=== PATIENT | female | born 1975 | race Caucasian/White ===

== ENCOUNTER → 2019-05-16 16:11 | Outpatient (CLI) | payer OTHER, SELFPAY ==
--- NOTE | 2019-05-16 16:14 | DI.RAD.S_ITS ---
PROCEDURE: XR THORACIC SPINE 3V INDICATIONS: back pain TECHNIQUE: 3 views of the thoracic spine were acquired. COMPARISON: None. FINDINGS: Bones: There is severe dextroscoliosis of the thoracic spine which limits the sensitivity. On the frontal view, no definite compression fracture seen however the lateral view is nondiagnostic Soft tissues: No paravertebral stripe thickening. IMPRESSION: Severe dextroscoliosis, which limits diagnostic study sensitivity. No definite fracture seen on the frontal view although if there is is persistent high clinical concern, CT could be performed. Dictated by: Aramis Mcarthur M.D. on 05/16/2019 at 16:49 Approved by: Aramis Mcarthur M.D. on 05/16/2019 at 16:52
== END ==
PROVIDERS: Family Provider Internal Medicine; PCP Internal Medicine; Visit Provider Internal Medicine
DX: M54.9 Dorsalgia, unspecified (principal); M41.84 Other forms of scoliosis, thoracic region
CPT/HCPCS: 72072

== ENCOUNTER → 2019-06-24 20:46 | Outpatient (CLI) | payer OTHER, SELFPAY | PROVIDERS: Family Provider Internal Medicine; PCP Internal Medicine; Visit Provider Physician Assistant | DX: R10.9 Unspecified abdominal pain (principal) | CPT/HCPCS: 87086; 87186 ==

== ENCOUNTER → 2019-07-11 11:35 | Outpatient (CLI) | payer OTHER, SELFPAY ==
--- NOTE | 2019-07-11 12:13 | DI.CT.S_ITS ---
PROCEDURE: CT KIDNEY URETER BLADDER (KUB) INDICATIONS: left flank pain TECHNIQUE: Noncontrast 5 mm thick sections acquired from the diaphragms to the symphysis. 5 mm thick coronal and sagittal reformats were then performed. For radiation dose reduction, the following was used: automated exposure control, adjustment of mA and/or kV according to patient size. COMPARISON: None. FINDINGS: Image quality: Excellent. Lung bases: Lung bases are clear. Heart size is normal. Urinary system: Both kidneys are normal in size. No kidney stone is found on the left but there is a 2 x 3 mm calculus within a nondistended portion of the renal pelvis on the right.. No hydronephrosis or perinephric fat stranding. Both ureters appear non-dilated throughout their expected courses. Bladder wall thickness is normal; no calcified bladder stones. Other solid organs: Liver is normal in size. Gallbladder appears normal. Pancreas is normal in contours. Spleen is normal in size. No adrenal nodules. Peritoneum and bowel: Unenhanced bowel loops demonstrate normal wall thickness and caliber. No free fluid or air. Nodes and vessels: No retroperitoneal or mesenteric adenopathy by size criteria. Aorta and inferior vena cava are normal in caliber. Abdominal wall: No ventral hernias. Pelvis: No free pelvic fluid. No inguinal hernias or adenopathy. Bones: No suspicious bony lesions. There is convex rightward thoracic scoliosis and moderately severe convex leftward scoliosis centered at the mid lumbosacral spine. No vertebral body compression fractures. IMPRESSION: A right sided nonobstructive 2 x 3 mm renal pelvis collecting system calculus is seen, potentially a source of episodic pain and hematuria but no left-sided urinary tract stone or ureteral dilatation is present and a source of the reported persistent left flank pain is not found. Dictated by: Percy Lynn M.D. on 07/11/2019 at 17:26 Approved by: Percy Lynn M.D. on 07/11/2019 at 17:28
== END ==
PROVIDERS: Family Provider Internal Medicine; PCP Internal Medicine; Visit Provider Internal Medicine
DX: N20.0 Calculus of kidney (principal); R31.9 Hematuria, unspecified; R10.9 Unspecified abdominal pain
CPT/HCPCS: 74176

== ENCOUNTER → 2019-12-02 10:05 | Outpatient (CLI) | payer OTHER, SELFPAY ==
--- NOTE | 2019-12-02 10:07 | DI.NM.S_ITS ---
PROCEDURE: NM BONE SCAN WHOLE BODY RADIOPHARMACEUTICAL: 20.7 mCi Tc-99m MDP IV. INDICATIONS: Left flank pain with scoliosis TECHNIQUE: Delayed whole-body scintigrams were obtained approximately 3-4 hours after intravenous injection of radiotracer. Anterior and posterior views were acquired from vertex to feet. COMPARISON: [facility], MR, MR THORACIC SPINE WITHOUT CONTRAST, 09/30/2019, 13:57. [facility], CT, CT KIDNEY URETER BLADDER (KUB), 07/11/2019, 11:40. FINDINGS: There is severe levoscoliosis. Foci of ncreased uptake in lower cervical spine, thoracic spine and lumbar spine are indistinguishable from degenerative disc and facet disease, most pronounced at C6-C7 on the right, T12-L1 on the left, L3 at L4 L5-L5 on the right. No lesions are identified in skull, sternum, clavicles, scapulae, ribs, bony pelvis, and visualized shafts of the long bones. There increased periarticular activity involving shoulders, sternoclavicular joints, hips and feet, consistent with degenerative/arthritic changes. IMPRESSION: Severe levoscoliosis and degenerative changes as described. Dictated by: Cy Hand M.D. on 12/02/2019 at 14:50 Approved by: Cy Hand M.D. on 12/06/2019 at 8:32
== END ==
PROVIDERS: PCP Internal Medicine; Visit Provider Physical Medicine & Rehabilitation
DX: M47.814 Spondylosis without myelopathy or radiculopathy, thoracic region (principal); M41.20 Other idiopathic scoliosis, site unspecified; R10.9 Unspecified abdominal pain
CPT/HCPCS: 78306; A9503

== ENCOUNTER 2020-01-10 12:39 | Outpatient (CLI) | payer OTHER, SELFPAY ==
[2020-01-10] VITALS (9 sets, daily range): BP systolic 136–154; BP diastolic 92–99; PULSE 89–110; RESP 16–17; TEMP 36.4; O2SAT 96–100
--- NOTE | 2020-01-10 12:41 | DI.RAD.S_ITS ---
PROCEDURE: PAIN L/SI FACET INJ/BLK 1STL INDICATIONS: SCOLIOSIS FINDINGS: Fluoroscopic spot filming was performed to verify placement of spinal needles at the T11-T12, T12-L1 level(s), as labeled on the films. Appropriate location(s) of the needle tip(s) was confirmed by injection of iodinated contrast. Dictated by: Aramis Mcarthur M.D. on 01/11/2020 at 11:58 Approved by: Aramis Mcarthur M.D. on 01/11/2020 at 11:58
[2020-01-10] MEDS: MIDAZOLAM 5 MG/5 ML VIAL IV (14:03)
[2020-01-10] MEDS: fentaNYL 100 MCG/2 ML INJ 50 MCG IV (14:03)
[2020-01-10] MEDS: DEXAMETHASONE 10 MG/ML VIAL 20 MG INJ (14:14)
[2020-01-10] MEDS: BUPIVACAINE 0.5% (PF) VIAL 2 ML INJ (14:14)
[2020-01-10] MEDS: IOPAMIDOL 15 ML VIAL 3 ML INJ (14:15)
--- NOTE | 2020-01-10 14:16 | PC.NURSE ---
ASSISTING PT OFF TABLE AND TRANSPORTING TO POST PROC AREA IN STABLE CONDITION. PASSING RN CARE OF PT OFF TO JANET Good RN.
--- NOTE | 2020-01-10 14:23 | P.PCN_ITS ---
Procedures Date/Time Date of procedure: 01/10/20 Time of procedure: 14:23 General Procedure description: PREOP DIAGNOSIS 1. FACET ARTHROPATHY, 2. AXIAL LBP, 3. MULTILEVEL DDD, POST OP DIAGNOSIS 1. FACET ARTHROPATHY, 2. AXIAL LBP, 3. MULTILEVEL DDD, PROCEDURES 1. FLUORSCOPICALLY GUIDED CONTRAST CONTROLLED FACET JOINT INJECTIONS LEFT T12/L1,L1/2 SURGEON: Govind Goodrich, INDICATION Yuliya is referred by . is referred for treatment of Axial LBP FINDINGS Multilevel Facet Arthropathy with Clinically significant axial LBP DESCRIPTION OF PROCEDURE Fluoroscopically guided, contrast-controlled left T12/L1, L1/2 facet joint injections. Following review of allergy and review of potential side effects and complications, including, but not necessarily limited to, infection, allergic reaction, local tissue breakdown, stroke, temporary or permanent nerve injury, paralysis, and possible , the patient indicated that the patient understood and agreed to proceed. An informed consent document was signed by the patient, witnessed by a nurse, and placed in the patient's chart. Additionally, other treatment options including medications, modalities, and physical therapy were reviewed with the patient. After review of previous anaesthesic history and IV conscious sedation the patient was deemed safe to proceed with todays procedure with IV conscious sedation as ASA class II designation. Safety time-out was performed to confirm patient ID, procedure to be performed and site of procedure. IV sedation was accomplished with a combination of 5mg of Versed and 50mcg of Fentanyl administered by the RN after DO order, titrated to patient comfort during the course of the procedure while the patient remained responsive to all verbal commands In the prone position, following sterile prep and drape of the lumbar region, the posterior aspect of the left T12/L1, L1/2 facet joints were identified fluoroscopically. The skin was anesthetized via a 25-gauge 1.5-inch needle with 1% lidocaine solution into the corresponding facet joints. At this point, a 25- gauge 3.5-inch spinal needle was atraumatically introduced and advanced under fluoroscopic guidance into the corresponding facet joints. Following negative aspiration, injections of approximately 0.2-cc of Isovue 200 confirmed interarticular placement without vascular uptake. Radiological data, including multiple fluoroscopic views of the lumbosacral spine, reveal a spinal needle at the left T12/L1, L1/2 facet joints. Subsequent views show flow of contrast material both superiorly and inferiorly within the joint space without vascular or intrathecal uptake. At this point, a total of 0.5cc including a mixture of 0.25cc Marcaine and 0.25cc dexamthasone was injected without complication into each of the corresponding facet joints. The patient tolerated the procedure well without signs or symptoms of complications prior to transfer to the recovery area continued monitoring without incident. The patient was then transferred to the recovery area where they were observed for an appropriate period of time after the injection. The patient reported a VAS score of 7 prior to the procedure and a post-procedure VAS of 0. Total Fluoroscopy Time: 20 seconds Total Conscious Sedation Time: 24 min POST OP INSTRUCTIONS The patient was provided a Pain Log to continue to record their response to the target-specific procedure prior to follow-up visit with their referring physician. Additionally, specific post-injection care instructions and a contact number to our office were provided if concerns arise regarding possible compl ications associated with the procedure are suspected. Govind Goodrich, Complications: none
--- NOTE | 2020-01-10 14:30 | PC.NURSE ---
1425: Received patient post procedure, calm, and pleasant. VSS, Lori WNL.
== END 2020-01-10 14:41 | disposition home or self-care (01) ==
LOC: RAD 12:41
PROVIDERS: PCP Internal Medicine; Referring Provider Physical Medicine & Rehabilitation; Visit Provider Physical Medicine & Rehabilitation
DX: M47.814 Spondylosis without myelopathy or radiculopathy, thoracic region (principal); M47.816 Spondylosis without myelopathy or radiculopathy, lumbar region; M54.5 Low back pain; M51.34 Other intervertebral disc degeneration, thoracic region; M51.36 Other intervertebral disc degeneration, lumbar region
CPT/HCPCS: 64490; 64491; 64493; 64494; 99152; J1100; J2250; J3010

== ENCOUNTER 2020-02-14 10:43 | Outpatient (CLI) | payer OTHER, SELFPAY ==
[2020-02-14] VITALS (7 sets, daily range): BP systolic 140–168; BP diastolic 73–102; PULSE 90–118; RESP 16–18; O2SAT 84–100
--- NOTE | 2020-02-14 10:44 | DI.RAD.S_ITS ---
PROCEDURE: PAIN C/T INTERLAMINAR INJECT INDICATIONS: SPINAL STENOSIS FINDINGS: Fluoroscopic spot filming was performed to verify placement of spinal needles at the T12-L1 interlaminar level(s), as labeled on the films. Appropriate location(s) of the needle tip(s) was confirmed by injection of iodinated contrast. IMPRESSION: Successful needle tip localization at the interlaminar space dorsally at T12-L1, for epidural steroid injection. Dictated by: Percy Lynn M.D. on 02/14/2020 at 12:48 Approved by: Percy Lynn M.D. on 02/14/2020 at 12:49
[2020-02-14] MEDS: fentaNYL 100 MCG/2 ML INJ 50 MCG IV (11:10)
[2020-02-14] MEDS: MIDAZOLAM 5 MG/5 ML VIAL IV (11:10)
[2020-02-14] MEDS: BUPIVACAINE 0.25% (PF) VIAL 2 ML INJ (11:14)
[2020-02-14] MEDS: BETAMETHASONE 30 MG/5 ML MDV 6 MG INJ (11:14)
[2020-02-14] MEDS: IOPAMIDOL 15 ML VIAL 3 ML INJ (11:14)
[2020-02-14] MEDS: DEXAMETHASONE 10 MG/ML VIAL 20 MG INJ (11:15)
--- NOTE | 2020-02-14 11:18 | PC.NURSE ---
ASSISTING PT OFF TABLE AND TRANSPORTING TO POST PROC AREA IN STABLE CONDITION. PASSING RN CARE OF PT OFF TO ROMA OCHOA.
--- NOTE | 2020-02-14 11:22 | P.PCN_ITS ---
Procedures Date/Time Date of procedure: 02/14/20 Time of procedure: 11:22 General Procedure description: Preop diagnosis: Thoracic stenosis with HNP Postprocedure diagnosis: Thoracic stenosis with HNP Physician: Govind Goodrich D.O. Indications: Yuliya is referred by Dr. Pickett for treatment of thoracic DDD/DJD with radiculopathy Description of procedure: Fluoroscopic guided, contrast controlled T12/L1 translaminar epidural steroid in jection with conscious sedation. Following review of allergy review potential side effects and complications, including, but not necessarily limited to, infection, allergic reaction, local tissue breakdown, temporary as well as permanent nerve injury, stroke, paralysis and possible , the patient indicated that they understood and agreed to proceed. An informed consent document was signed by the patient, witnessed by the nurse, and placed in the patient's chart. Additionally other treatment options including modalities, medications and physical therapy were reviewed with the patient. After review of previous anaesthesic history and IV conscious sedation the patient was deemed safe to proceed with todays procedure with IV conscious sedation as ASA class II designation. Safety time-out was performed to confirm patient ID, procedure to be performed and site of procedure. IV sedation was accomplished with a combination of 4mg of Versed and 50mcg of Fentanyl administered by the RN after DO order, titrated to patient comfort during the course of the procedure while the patient remained responsive to all verbal commands In the prone position, following sterile prep and drape of the thoracic region the T12/L1 translaminar space was identified fluoroscopically. The skin was anesthetized via 25 gauge 20 mm sheath with 1% lidocaine solution. At this point a 20 gauge epidural needle was atraumatically introduced and advanced under fluoroscopic guidance into the region of the T12/L1 translaminar space depth was confirmed on lateral view. Radiographic data, including multiple fluoroscopic views of the thoracic spine, reveals spinal needle at the T12/[id number] space. Lateral views then showed the placement of the needle in the epidural space. Subsequent view show contrast material flowing superiorly and inferiorly in the epidural space. No vascular or intrathecal uptake is observed. At this point using loss of resistance technique with saline and the epidural s pace was entered. This was confirmed followed negative aspiration and injection of approximately 1.5 cc of Isovue 200 showed excellent epidural flow without vascular or intrathecal uptake. At this point, 1 cc of 1% lidocaine solution was admitted as a test dose and the patient was observed for an appropriate period of time without signs or symptoms of complications, including abdominal pain, shortness of breath, bilateral upper and lower extremity weakness, nausea and vomiting, prior to steroid injection. Subsequently, 2cc or 20mg of dexamethasone was then injected without incident. The patient tolerated the procedure well without signs of complications and subsequently was transferred to the recovery room for further monitoring. The patient was then transferred to the recovery area with their observed for an appropriate time after the injection. Patient reported a VAS score of 9 prior to the procedure and postprocedure VAS of 2. Total fluoroscopy time: 7 sec Total conscious sedation time: 24 min Govind Goodrich D.O. Complications: none
--- NOTE | 2020-02-14 11:52 | PC.NURSE ---
pt returned from [facility] via [facility]. Able to transfer from to chair without issues. resumed monitoring from ROMA Rod
== END 2020-02-14 11:54 | disposition home or self-care (01) ==
LOC: RAD 10:43
PROVIDERS: PCP Internal Medicine; Referring Provider Internal Medicine; Visit Provider Physical Medicine & Rehabilitation
DX: M48.04 Spinal stenosis, thoracic region (principal); M51.14 Intervertebral disc disorders with radiculopathy, thoracic region; M47.24 Other spondylosis with radiculopathy, thoracic region
CPT/HCPCS: 62321; 99152; J0702; J1100; J2250; J3010

== ENCOUNTER → 2020-05-29 17:16 | Outpatient (CLI) | payer OTHER, SELFPAY ==
[2020-05-29 20:13] LABS: Free T3, Triiodothyronine Free 2.71 pg/mL (2.77-5.27); Free T4, Direct Thyroxine 2.06 ng/dL (0.78-2.19)
[2020-05-29 20:27] LABS: Thyroid Stimulating Hormone 0.098 uIU/mL (0.47-4.68)
[2020-05-29 20:48] LABS: Alanine Aminotransferase 21 IU/L (<35); Albumin 4.4 g/dL (3.5-5.0); Albumin Globulin Ratio 1.5 (1.0-2.8); Alkaline Phosphatase 57 U/L (38-126); Aspartate Aminotransferase 31 IU/L (14-36); BUN Creatinine Ratio 13.9 (6-22); Bilirubin Total 0.4 mg/dL (0.2-1.3); Blood Urea Nitrogen 10 mg/dL (7-17); Calcium 10.2 mg/dL (8.4-10.2); Carbon Dioxide 24 mmol/L (22-32); Chloride 104 mmol/L (98-107); Estimated Glomerular Filt Rate > 60.0 mL/min (>60); Globulin 2.9 g/dL (1.7-4.1); Glucose 87 mg/dL (70-100); HEMOLYSIS < 15 (0-50); Potassium 4.4 mmol/L (3.4-5.1); Sodium 136 mmol/L (137-145); Total Protein 7.3 g/dL (6.3-8.2)
== END ==
PROVIDERS: PCP Internal Medicine; Referring Provider Internal Medicine; Visit Provider Internal Medicine
DX: E03.9 Hypothyroidism, unspecified (principal); F41.9 Anxiety disorder, unspecified; I10 Essential (primary) hypertension
CPT/HCPCS: 36415; 80053; 84439; 84443; 84481

== ENCOUNTER → 2021-02-13 14:19 | Outpatient (CLI) | payer OTHER, SELFPAY ==
--- NOTE | 2021-02-13 14:21 | DI.RAD.S_ITS ---
PROCEDURE: XR LUMBAR SPINE MIN 4V INDICATIONS: back pain TECHNIQUE: 5 views of the lumbar spine acquired, including flexion and extension views. COMPARISON: None. FINDINGS: Bones: 5 nonrib-bearing vertebrae are present. Moderate to severe levoscoliosis centered at the L3-L5 level. Grade 1 retrolisthesis L4-L5. Multilevel disc degeneration, most notably and severe at the L4-L5 level. Moderate L4-L5 and L5-S1 facet joint arthropathy. No vertebral body compression fractures. No suspicious bony lesions. Soft tissues: Overlying bowel gas pattern is normal. No suspicious soft tissue calcifications. IMPRESSION: Multilevel spondylosis, most notably with severe disc degeneration at the L4-L5 level. Dictated by: Nick Woods A Interpreted: Jessica Harman MD on 02/13/2021 at 15:22 Approved by: Jessica Harman MD, PhD on 02/13/2021 at 15:38
--- NOTE | 2021-02-13 14:21 | DI.RAD.S_ITS ---
PROCEDURE: XR THORACIC SPINE 3V INDICATIONS: rib pain TECHNIQUE: 3 views of the thoracic spine were acquired. COMPARISON: [facility], , XR THORACIC SPINE 3V, 05/16/2019, 16:15. FINDINGS: Bones: No definite fracture or although limited diagnostic sensitivity given severe scoliosis. Multilevel degenerative endplate sclerosis and spurring. Diffuse facet arthropathy. Soft tissues: No paravertebral stripe thickening. IMPRESSION: Discogenic changes. No definite fracture although suboptimal evaluation due to severe scoliosis. Dictated by: Aramis Mcarthur M.D. on 02/13/2021 at 15:29 Approved by: Aramis Mcarthur M.D. on 02/13/2021 at 15:33
== END ==
PROVIDERS: PCP Internal Medicine; Referring Provider Physical Medicine & Rehabilitation; Visit Provider Physical Medicine & Rehabilitation
DX: M48.061 Spinal stenosis, lumbar region without neurogenic claudication (principal); M47.814 Spondylosis without myelopathy or radiculopathy, thoracic region; M54.5 Low back pain; R07.81 Pleurodynia
CPT/HCPCS: 72072; 72110

== ENCOUNTER → 2021-02-27 16:09 | Outpatient (CLI) | payer OTHER, SELFPAY ==
[2021-02-27] MEDS: COVID-19 VACC #1, MRNA(MOD) 100 MCG/0.5 ML VIAL IM (16:14)
== END ==
PROVIDERS: PCP Internal Medicine; Visit Provider Internal Medicine
DX: Z23 Encounter for immunization (principal)
CPT/HCPCS: 0011A; 91301

== ENCOUNTER → 2021-03-27 15:37 | Outpatient (CLI) | payer OTHER, SELFPAY ==
[2021-03-27] MEDS: COVID-19 VACC #2, MRNA(MOD) 100 MCG/0.5 ML VIAL IM (15:46)
== END ==
PROVIDERS: PCP Internal Medicine; Visit Provider Internal Medicine
DX: Z23 Encounter for immunization (principal)
CPT/HCPCS: 0012A; 91301

== ENCOUNTER → 2021-08-12 16:52 | Outpatient (CLI) | payer OTHER, SELFPAY ==
[2021-08-12 17:41] LABS: Alanine Aminotransferase 18 IU/L (<35); Albumin 4.4 g/dL (3.5-5.0); Albumin Globulin Ratio 1.5 (1.0-2.8); Alkaline Phosphatase 57 U/L (38-126); Aspartate Aminotransferase 30 IU/L (14-36); BUN Creatinine Ratio 14.3 (6-22); Bilirubin Total 0.4 mg/dL (0.2-1.3); Blood Urea Nitrogen 11 mg/dL (7-17); Calcium 9.6 mg/dL (8.4-10.2); Carbon Dioxide 24 mmol/L (22-32); Chloride 105 mmol/L (98-107); Estimated Glomerular Filt Rate > 60.0 mL/min (>60); Globulin 2.9 g/dL (1.7-4.1); Glucose 89 mg/dL (70-100); HEMOLYSIS < 15 (0-50); Sodium 137 mmol/L (137-145); Total Protein 7.3 g/dL (6.3-8.2)
[2021-08-12 17:59] LABS: Free T3, Triiodothyronine Free 3.58 pg/mL (2.77-5.27); Free T4, Direct Thyroxine 1.56 ng/dL (0.78-2.19)
== END ==
PROVIDERS: PCP Internal Medicine; Referring Provider Internal Medicine; Visit Provider Internal Medicine
DX: I10 Essential (primary) hypertension (principal); E03.9 Hypothyroidism, unspecified; F33.40 Major depressive disorder, recurrent, in remission, unspecified
CPT/HCPCS: 36415; 80053; 84439; 84443; 84481

== ENCOUNTER → 2022-01-15 07:45 | Outpatient (CLI) | payer OTHER, SELFPAY ==
--- NOTE | 2022-01-15 07:46 | DI.RAD.S_ITS ---
PROCEDURE: XR LUMBAR SPINE MIN 4V INDICATIONS: Acute LBP and Right Hip pain TECHNIQUE: 5 views of the lumbar spine were acquired, including bilateral oblique views. COMPARISON: [facility], , XR LUMBAR SPINE MIN 4V, 02/13/2021, 14:29. FINDINGS: Bones: 5 nonrib-bearing vertebrae are present. Marked dextroscoliosis of thoracic spine with mild compensatory levoscoliosis of lumbar spine centered at L4 level is again seen and unchanged. No vertebral body compression fractures. Degenerative endplate changes and bilateral facet arthrosis throughout lumbar spine is seen more prominent at L3-4 and L4-5 levels. Vacuum disc phenomenon is also noted at L4-5 level. No spondylolisthesis. No suspicious bony lesions. Soft tissues: Overlying bowel gas pattern is normal. No suspicious soft tissue calcifications. Oblique images: No pars defects. Suggestion of bilateral bony foraminal stenosis at L3-4 through L5-S1 levels are seen. IMPRESSION: 1. Marked S-shaped scoliosis as above unchanged from prior study. No acute compression fracture or spondylolisthesis. 2. Degenerative disc disease throughout lumbar spine more prominent at L3-4 through L5-S1 levels. 3. No gross pars defects. Suggestion of bilateral bony foraminal stenosis at L3-4 through L5-S1 levels on oblique views. Dictated by: Rogers Prieto M.D. on 01/15/2022 at 8:32 Approved by: Rogers Prieto M.D. on 01/15/2022 at 8:37
== END ==
PROVIDERS: PCP Internal Medicine; Referring Provider Physical Medicine & Rehabilitation; Visit Provider Physical Medicine & Rehabilitation
DX: M41.115 Juvenile idiopathic scoliosis, thoracolumbar region (principal); M51.36 Other intervertebral disc degeneration, lumbar region; M51.37 Other intervertebral disc degeneration, lumbosacral region
CPT/HCPCS: 72110

== ENCOUNTER → 2022-04-07 14:45 | Outpatient (CLI) | payer OTHER, SELFPAY ==
[2022-04-07 16:41] LABS: Follicle Stimulating Hormone 16.8 mIU/mL
[2022-04-07 17:02] LABS: Appearance Urine UA CLEAR; Bilirubin Urine UA NEGATIVE (NEGATIVE); Color Urine UA YELLOW; Glucose Urine UA NEGATIVE (Negative); Ketones Urine UA NEGATIVE (NEGATIVE); Leukocyte Esterase Urine UA TRACE (NEGATIVE); Nitrite Urine UA NEGATIVE (Negative); Occult Blood Urine UA NEGATIVE (Negative); Protein Urine UA NEGATIVE (Negative); Urobilinogen Urine UA 0.2 E.U./dL (0.2)
[2022-04-07 17:09] LABS: RBC Urine 0-1/HPF (0-5/HPF); WBC Urine 5-10/HPF (0-5/HPF)
[2022-04-07 17:10] LABS: Bacteria Urine Occasional (0-1); Culture Indicated Urine Specimen Cultured
== END ==
PROVIDERS: PCP Internal Medicine; Referring Provider Nurse Practitioner; Visit Provider Nurse Practitioner
DX: N92.6 Irregular menstruation, unspecified (principal); R32 Unspecified urinary incontinence
CPT/HCPCS: 36415; 81001; 83001; 87086

== ENCOUNTER → 2022-05-02 15:54 | Outpatient (CLI) | payer OTHER, SELFPAY ==
--- NOTE | 2022-05-02 15:56 | DI.MRI.S_ITS ---
PROCEDURE: MR THORACIC SPINE WO CON INDICATIONS: thoracic stenosis with scoliosis TECHNIQUE: Noncontrast sagittal T1 spine echo and T2 fast spin echo, sagittal STIR, axial T1 and T2 fast spin echo through the thoracic spine. COMPARISON: [facility], CR, XR LUMBAR SPINE MIN 4V, 01/15/2022, 7:39. [facility], [facility], MR THORACIC SPINE WITHOUT CONTRAST, 09/30/2019, 13:57. FINDINGS: Image quality: Excellent. Alignment and Curvature: There is significant dextroconvex thoracic scoliosis, which measures approximately 60?. Bone Marrow: Marrow is of normal overall signal. No acute vertebral body compression fractures. Spinal Cord: There is partial visualization of lower cervical spine syrinx. Mid thoracic spine syrinx is seen, which extends from T5 through T8. Visualized spinal cord is otherwise normal in size and signal. Paraspinous Soft Tissues: No paravertebral masses. Miscellaneous: Several levels of at least moderate neural foraminal narrowing can be seen within the mid thoracic spine on the left side. No significant central canal narrowing is seen. Reactive marrow endplate changes are seen on the left at the T11-T12 level and also on the right at the L2-L3 level, which are hypointense on T1-weighted imaging and hyperintense on T2 weighted imaging, which is most consistent with edema (Modic type I changes). IMPRESSION: Significant dextroconvex scoliosis, approximately 60?. There is new endplate edema (Modic type 1 changes) seen on the left at the T11-T12 level and on the right at the L2-L3 level. Lower cervical spine and midthoracic syrinx can again be seen, which is similar to 2019, when comparison is made to the prior images. Several levels of at least moderate midthoracic neural foraminal narrowing can be seen on the left side. No significant central canal narrowing is seen. Dictated by: Marcelino Calderon M.D. on 05/02/2022 at 15:50 Approved by: Marcelino Calderon M.D. on 05/02/2022 at 15:58
== END ==
PROVIDERS: PCP Internal Medicine; Referring Provider Physical Medicine & Rehabilitation; Visit Provider Physical Medicine & Rehabilitation
DX: M41.115 Juvenile idiopathic scoliosis, thoracolumbar region (principal); M47.814 Spondylosis without myelopathy or radiculopathy, thoracic region; M48.04 Spinal stenosis, thoracic region; G95.0 Syringomyelia and syringobulbia
CPT/HCPCS: 72146

== ENCOUNTER → 2022-09-25 14:22 | Outpatient (CLI) | payer OTHER, SELFPAY | PROVIDERS: PCP Internal Medicine; Referring Provider Internal Medicine; Visit Provider Internal Medicine | DX: R20.0 Anesthesia of skin (principal) | CPT/HCPCS: 95886; 95912 ==

== ENCOUNTER → 2023-04-13 15:12 | Outpatient (CLI) | payer OTHER, SELFPAY ==
--- NOTE | 2023-04-13 15:13 | DI.RAD.S_ITS ---
PROCEDURE: XR CHEST 2V INDICATIONS: cough TECHNIQUE: 2 views of the chest were acquired. COMPARISON: None. FINDINGS: Surgical changes and devices: None. Lungs and pleura: Lungs are clear. No pleural effusions or pneumothorax. Mediastinum: Mediastinal contours are normal. Heart size is normal. Bones and chest wall: Severe right convex scoliosis is noted. Soft tissues appear unremarkable. IMPRESSION: No acute cardiopulmonary findings. Dictated by: Tianna Duncan M.D. on 04/13/2023 at 17:40 Approved by: Tianna Duncan M.D. on 04/13/2023 at 17:40
== END ==
PROVIDERS: PCP Internal Medicine; Referring Provider Internal Medicine; Visit Provider Internal Medicine
DX: R05.9 Cough, unspecified (principal)
CPT/HCPCS: 71046

== ENCOUNTER → 2023-12-22 11:44 | Outpatient (CLI) | payer OTHER, SELFPAY ==
--- NOTE | 2023-12-22 11:46 | DI.RAD.S_ITS ---
PROCEDURE: XR PELVIS 1-2V INDICATIONS: bladder stone TECHNIQUE: 1 view(s) of the pelvis acquired. COMPARISON: [facility], CT, CT ABDOMEN PELVIS WITH CONTRAST, 12/04/2023, 21:10. FINDINGS: Bones: No fractures or dislocations. No suspicious bony lesions. Soft tissues: Visualized bowel gas pattern is normal. Again noted is an unchanged bladder stone. An IUD is present in the uterus. IMPRESSION: Bladder stone Dictated by: Abad Rose M.D. on 12/22/2023 at 19:05 Approved by: Abad Rose M.D. on 12/22/2023 at 19:07
[2023-12-22 12:46] LABS: Basophils Absolute Auto 100 /uL (0-100); Basophils Percent Auto 0.7 % (0-2); Eosinophils Absolute Auto 400 /uL (0-450); Eosinophils Percent Auto 3.2 % (2-4); Hematocrit 30.5 % (36-46); Hemoglobin 9.8 g/dL (12.0-16.0); Lymphocytes Absolute Auto 3000 /uL (1100-4500); Lymphocytes Percent Auto 26.1 % (25-40); Mean Corpuscular HGB Conc 32.1 % (30-36); Mean Corpuscular Hemoglobin 28.1 PG (26-34); Mean Corpuscular Volume 87.5 fL (80-100); Monocytes Absolute Auto 700 /uL (0-900); Monocytes Percent Auto 5.7 % (3-14); Neutrophils Absolute Auto 7500 /uL (1500-7000); Neutrophils Percent Auto 64.3 % (50-75); Red Blood Cell Count 3.49 X10^6/uL (4.0-5.2); Red Cell Distribution Width 15.4 % (11.6-14.8); White Blood Cell Count 11.6 X10^3/uL (4.5-11.0)
[2023-12-22 12:54] LABS: Platelet Count 1293 X10^3/uL (150-400)
[2023-12-22 12:55] LABS: Add Manual Diff / Slide Review SLIDE REVIEW
[2023-12-22 13:15] LABS: Platelet Estimate Increased on smear; RBC Morphology Normal Morphology
[2023-12-22 13:38] LABS: Alanine Aminotransferase 25 IU/L (<35); Albumin 3.6 g/dL (3.5-5.0); Albumin Globulin Ratio 0.9 (1.0-2.8); Alkaline Phosphatase 122 U/L (38-126); Aspartate Aminotransferase 42 IU/L (14-36); BUN Creatinine Ratio 13.7 (6-22); Bilirubin Total 0.5 mg/dL (0.2-1.3); Blood Urea Nitrogen 13 mg/dL (7-17); Calcium 9.8 mg/dL (8.4-10.2); Carbon Dioxide 23 mmol/L (22-32); Chloride 106 mmol/L (98-107); Estimated Glomerular Filt Rate > 60 mL/min (>60); Globulin 3.9 g/dL (1.7-4.1); Glucose 92 mg/dL (70-100); HEMOLYSIS < 15 (0-50); Potassium 4.6 mmol/L (3.4-5.1); Sodium 142 mmol/L (137-145); Total Protein 7.5 g/dL (6.3-8.2)
[2023-12-22 13:51] LABS: Free T4, Direct Thyroxine 1.72 ng/dL (0.78-2.19)
[2023-12-22 14:05] LABS: Thyroid Stimulating Hormone < 0.015 uIU/mL (0.47-4.68)
== END ==
PROVIDERS: PCP Internal Medicine; Referring Provider Internal Medicine; Visit Provider Internal Medicine
DX: N21.0 Calculus in bladder (principal); E03.9 Hypothyroidism, unspecified; I10 Essential (primary) hypertension
CPT/HCPCS: 36415; 72170; 80053; 84439; 84443; 85025

== ENCOUNTER → 2024-06-17 16:49 | Outpatient (CLI) | payer OTHER, SELFPAY ==
[2024-06-17 17:38] LABS: Add Manual Diff / Slide Review NO; Basophils Absolute Auto 100 /uL (0-100); Basophils Percent Auto 0.9 % (0-2); Eosinophils Absolute Auto 500 /uL (0-450); Eosinophils Percent Auto 6.9 % (2-4); Hematocrit 36.8 % (36-46); Lymphocytes Absolute Auto 2600 /uL (1100-4500); Lymphocytes Percent Auto 39.6 % (25-40); Mean Corpuscular HGB Conc 32.6 % (30-36); Mean Corpuscular Hemoglobin 29.1 PG (26-34); Mean Corpuscular Volume 89.2 fL (80-100); Monocytes Absolute Auto 600 /uL (0-900); Monocytes Percent Auto 9.1 % (3-14); Neutrophils Absolute Auto 2900 /uL (1500-7000); Neutrophils Percent Auto 43.5 % (50-75); Platelet Count 480 X10^3/uL (150-400); Red Blood Cell Count 4.13 X10^6/uL (4.0-5.2); Red Cell Distribution Width 15.2 % (11.6-14.8); White Blood Cell Count 6.6 X10^3/uL (4.5-11.0)
[2024-06-17 18:41] LABS: Alanine Aminotransferase 27 IU/L (<35); Albumin 4.2 g/dL (3.5-5.0); Albumin Globulin Ratio 1.4 (1.0-2.8); Alkaline Phosphatase 113 U/L (38-126); Aspartate Aminotransferase 43 IU/L (14-36); BUN Creatinine Ratio 16.1 (6-22); Bilirubin Total 0.4 mg/dL (0.2-1.3); Blood Urea Nitrogen 18 mg/dL (7-17); Calcium 10.3 mg/dL (8.4-10.2); Carbon Dioxide 28 mmol/L (22-32); Chloride 107 mmol/L (98-107); Estimated Glomerular Filt Rate > 60 mL/min (>60); Glucose 92 mg/dL (70-100); HEMOLYSIS < 15 (0-50); Potassium 4.2 mmol/L (3.4-5.1); Sodium 142 mmol/L (137-145); Total Protein 7.2 g/dL (6.3-8.2)
[2024-06-17 19:37] LABS: Free T3, Triiodothyronine Free 4.97 pg/mL (2.77-5.27); Free T4, Direct Thyroxine 2.06 ng/dL (0.78-2.19)
[2024-06-17 19:55] LABS: Thyroid Stimulating Hormone < 0.015 uIU/mL (0.47-4.68)
== END ==
PROVIDERS: PCP Internal Medicine; Referring Provider Internal Medicine; Visit Provider Internal Medicine
DX: I10 Essential (primary) hypertension (principal); E03.9 Hypothyroidism, unspecified; J18.9 Pneumonia, unspecified organism
CPT/HCPCS: 36415; 80053; 84439; 84443; 84481; 85025

== ENCOUNTER → 2024-10-14 16:40 | Outpatient (CLI) | payer OTHER, SELFPAY ==
[2024-10-14 17:08] LABS: Add Manual Diff / Slide Review NO; Basophils Absolute Auto 0 /uL (0-100); Basophils Percent Auto 0.5 % (0-2); Eosinophils Absolute Auto 300 /uL (0-450); Eosinophils Percent Auto 4.2 % (2-4); Hematocrit 38.1 % (36-46); Hemoglobin 12.6 g/dL (12.0-16.0); Lymphocytes Absolute Auto 2700 /uL (1100-4500); Lymphocytes Percent Auto 33.1 % (25-40); Mean Corpuscular HGB Conc 33.1 % (30-36); Mean Corpuscular Hemoglobin 29.1 PG (26-34); Mean Corpuscular Volume 87.8 fL (80-100); Monocytes Absolute Auto 500 /uL (0-900); Monocytes Percent Auto 6.2 % (3-14); Neutrophils Absolute Auto 4500 /uL (1500-7000); Platelet Count 492 X10^3/uL (150-400); Red Blood Cell Count 4.34 X10^6/uL (4.0-5.2); Red Cell Distribution Width 13.7 % (11.6-14.8); White Blood Cell Count 8.1 X10^3/uL (4.5-11.0)
[2024-10-14 17:29] LABS: Alanine Aminotransferase 20 IU/L (<35); Albumin 4.3 g/dL (3.5-5.0); Albumin Globulin Ratio 1.5 (1.0-2.8); Alkaline Phosphatase 101 U/L (38-126); Aspartate Aminotransferase 29 IU/L (14-36); BUN Creatinine Ratio 17.4 (6-22); Bilirubin Total 0.4 mg/dL (0.2-1.3); Blood Urea Nitrogen 15 mg/dL (7-17); Calcium 10.2 mg/dL (8.4-10.2); Carbon Dioxide 25 mmol/L (22-32); Chloride 105 mmol/L (98-107); Estimated Glomerular Filt Rate > 60 mL/min (>60); Globulin 2.8 g/dL (1.7-4.1); Glucose 92 mg/dL (70-100); HEMOLYSIS < 15 (0-50); Potassium 3.9 mmol/L (3.4-5.1); Sodium 139 mmol/L (137-145); Total Protein 7.1 g/dL (6.3-8.2)
== END ==
PROVIDERS: PCP Internal Medicine; Referring Provider Internal Medicine; Visit Provider Internal Medicine
DX: I10 Essential (primary) hypertension (principal); Z87.442 Personal history of urinary calculi; J98.4 Other disorders of lung
CPT/HCPCS: 36415; 80053; 85025

== ENCOUNTER → 2025-04-10 16:52 | Outpatient (CLI) | payer OTHER, SELFPAY ==
[2025-04-10 17:49] LABS: Alanine Aminotransferase 25 IU/L (<35); Albumin 4.5 g/dL (3.5-5.0); Albumin Globulin Ratio 1.7 (1.0-2.8); Alkaline Phosphatase 113 U/L (38-126); Aspartate Aminotransferase 37 IU/L (14-36); BUN Creatinine Ratio 19.2 (6-22); Bilirubin Total 0.5 mg/dL (0.2-1.3); Blood Urea Nitrogen 19 mg/dL (7-17); Calcium 10.4 mg/dL (8.4-10.2); Carbon Dioxide 24 mmol/L (22-32); Chloride 107 mmol/L (98-107); Estimated Glomerular Filt Rate > 60 mL/min (>60); Globulin 2.7 g/dL (1.7-4.1); Glucose 85 mg/dL (70-99); HEMOLYSIS < 15 (0-50); Potassium 4.3 mmol/L (3.4-5.1); Sodium 141 mmol/L (137-145); Total Protein 7.2 g/dL (6.3-8.2)
[2025-04-10 18:07] LABS: Free T3, Triiodothyronine Free 3.89 pg/mL (2.77-5.27); Free T4, Direct Thyroxine 2.67 ng/dL (0.78-2.19)
[2025-04-10 18:21] LABS: Thyroid Stimulating Hormone < 0.015 uIU/mL (0.47-4.68)
== END ==
PROVIDERS: PCP Internal Medicine; Referring Provider Internal Medicine; Visit Provider Internal Medicine
DX: I10 Essential (primary) hypertension (principal); E03.9 Hypothyroidism, unspecified; F41.9 Anxiety disorder, unspecified
CPT/HCPCS: 36415; 80053; 84439; 84443; 84481